=== PATIENT | female | born 1980 | race Caucasian/White ===

== ENCOUNTER 2017-08-09 16:07 | Emergency (ER) | payer OTHER, MEDICAID ==
[~2017-08-09] VITALS: Ht 152.4 cm; Wt 50.8 kg
[~2017-08-09 16:07] MED LIST: AMOXICILLIN 50500 MG PO; ANTIPYRINE-BENZ14 ML OT; AUGMENTIN 875875 M1 PO; BACTRIM DS TAB1 EACH PO; DIFLUCAN150 MG PO; DOXYCYCLINE 10100 MG PO; FLAGYL500 MG PO; FLEXERIL PO; HYDROCODONE-AP1 EAC6 PO; IBUPROFEN 800800 M1 PO; NAPROSYN500 MG PO; NOHOMEMEDICATIONS; NORCO 5-325 TA1 EACH PO; PROPRANOLOL 1010 MG PO; SPRINTEC1 EACH PO; ULTRAM 50MG TAB50 MG PO; VICODIN 5-5001 EACH PO; XANAX 0.25 MG0.25 MG PO; ZOFRAN ODT4 MG PO; ZOFRAN4 MG PO
[2017-08-09 16:22] VITALS: BP 121/79
[2017-08-09] MEDS ORDERED: PENICILLIN V P500 MG PO (16:28)
[2017-08-09] MEDS ORDERED: NORCO 5-325 TA1 EACH PO (16:28)
== END 2017-08-09 16:33 | disposition home or self-care (01) ==
LOC: M.ERS 16:07
DX: K02.9 Dental caries, unspecified (principal); G89.29 Other chronic pain; Z98.890 Other specified postprocedural states

== ENCOUNTER 2017-08-20 22:14 | Emergency (ER) | payer OTHER, MEDICAID ==
[~2017-08-20] VITALS: Ht 152.4 cm; Wt 49.9 kg
[~2017-08-20 22:14] MED LIST changes: +PENICILLIN V P500 MG PO
[2017-08-20 23:09] LABS: INFLUENZA A ANTIGEN None Detected (None Detect); INFLUENZA B ANTIGEN None Detected (None Detect)
[2017-08-20] MEDS ORDERED: AUGMENTIN 875-1 EACH PO (23:12)
[2017-08-20] MEDS ORDERED: NORCO 5-325 TA1 EACH PO (23:12)
[2017-08-20] MEDS ORDERED: ZOFRAN ODT4 MG PO (23:12)
[2017-08-20 23:30] VITALS: BP 109/63
== END 2017-08-20 23:30 | disposition home or self-care (01) ==
LOC: M.ERS 22:14
PROVIDERS: Emergency Medicine Emergency Medical Services
DX: K08.89 Other specified disorders of teeth and supporting structures (principal); G89.29 Other chronic pain; Z98.890 Other specified postprocedural states

== ENCOUNTER 2017-10-09 18:08 | Emergency (ER) | payer OTHER, MEDICAID ==
[~2017-10-09] VITALS: Ht 152.4 cm; Wt 47.2 kg
[~2017-10-09 18:08] MED LIST changes: +AUGMENTIN 875-1 EACH PO
[2017-10-09] MEDS ORDERED: ONE DAILY WOME1 EAC3 PO (18:21)
[2017-10-09] MEDS ORDERED: TRAMADOL 50 MG50 MG PO (18:37)
[2017-10-09] MEDS ORDERED: KEFLEX500 M1 PO (18:37)
[2017-10-09] MEDS ORDERED: SSD CREAM 1% 5050 GM TOP (18:39)
[2017-10-09 19:01] VITALS: BP 117/75
== END 2017-10-09 19:04 | disposition home or self-care (01) ==
LOC: M.ERS 18:08
DX: T20.50XA Corrosion of first degree of head, face, and neck, unspecified site, initial encounter (principal); T22.50XA Corrosion of first degree of shoulder and upper limb, except wrist and hand unspecified site, initial encounter; T32.0 Corrosions involving less than 10% of body surface; G89.29 Other chronic pain; M54.2 Cervicalgia; F10.20 Alcohol dependence, uncomplicated; Y93.89 Activity, other specified; Y92.89 Other specified places as the place of occurrence of the external cause; Y99.8 Other external cause status

== ENCOUNTER 2018-01-12 13:14 | Emergency (ER) | payer OTHER, MEDICAID ==
[~2018-01-12] VITALS: Ht 152.4 cm; Wt 45.8 kg
[~2018-01-12 13:14] MED LIST changes: +KEFLEX500 M1 PO; +ONE DAILY WOME1 EAC3 PO; +SSD CREAM 1% 5050 GM TOP; +TRAMADOL 50 MG50 MG PO
[2018-01-12 13:19] VITALS: BP 119/80
[2018-01-12] MEDS ORDERED: ACETAMINOPHEN-1 EAC1 PO (13:57)
[2018-01-12] MEDS ORDERED: MEDROLDOSEPACK PO (13:57)
[2018-01-12] MEDS ORDERED: CLARITIN10 MG PO (13:57)
== END 2018-01-12 14:04 | disposition home or self-care (01) ==
LOC: M.ERS 13:14
DX: J06.9 Acute upper respiratory infection, unspecified (principal); G89.29 Other chronic pain; M54.2 Cervicalgia

== ENCOUNTER 2018-05-21 16:57 | Emergency (ER) | payer OTHER, MEDICAID ==
[~2018-05-21] VITALS: Ht 152.4 cm; Wt 47.2 kg
[~2018-05-21 16:57] MED LIST changes: +ACETAMINOPHEN-1 EAC1 PO; +CLARITIN10 MG PO; +MEDROLDOSEPACK PO
[2018-05-21 17:27] LABS: URINE BILIRUBIN NEGATIVE (Negative); URINE BLOOD NEGATIVE (Negative); URINE CLARITY CLEAR; URINE COLOR YELLOW; URINE GLUCOSE-RANDOM NEGATIVE (Negative); URINE KETONES 1+ (Negative); URINE LEUKOCYTES-REFLEX NEGATIVE (Negative); URINE NITRITE-REFLEX NEGATIVE (Negative); URINE PROTEIN NEGATIVE (Negative); URINE SPECIFIC GRAVITY <= 1.005 (1.005-1.030); URINE UROBILINOGEN 0.2 E.U./dl (0.2-1.0)
[2018-05-21] MEDS ORDERED: ZOFRAN4 MG PO (18:33)
[2018-05-21 18:41] VITALS: BP 128/81
== END 2018-05-21 18:42 | disposition home or self-care (01) ==
LOC: M.ERS 16:57
PROVIDERS: Nurse Practitioner Family
DX: B34.9 Viral infection, unspecified (principal); M54.9 Dorsalgia, unspecified; G89.29 Other chronic pain; Z98.890 Other specified postprocedural states

== ENCOUNTER 2018-08-09 12:00 | Emergency (ER) | payer OTHER, MEDICAID ==
[~2018-08-09] VITALS: Ht 152.4 cm; Wt 47.2 kg
[2018-08-09] MEDS ORDERED: IBUPROFEN 800800 M1 PO (12:15)
[2018-08-09 12:37] LABS: URINE BILIRUBIN NEGATIVE (Negative); URINE BLOOD NEGATIVE (Negative); URINE CLARITY CLEAR; URINE COLOR YELLOW; URINE GLUCOSE-RANDOM NEGATIVE (Negative); URINE KETONES NEGATIVE (Negative); URINE LEUKOCYTES-REFLEX NEGATIVE (Negative); URINE NITRITE-REFLEX NEGATIVE (Negative); URINE PROTEIN NEGATIVE (Negative); URINE SPECIFIC GRAVITY <= 1.005 (1.005-1.030); URINE UROBILINOGEN 0.2 E.U./dl (0.2-1.0)
[2018-08-09 12:39] LABS: ABSOLUTE BASOPHILS 0.1 thou/uL (0.0-0.2); ABSOLUTE EOSINOPHILS 0.1 thou/uL (0.0-0.7); ABSOLUTE LYMPHOCYTES 2.2 thou/uL (0.8-5.3); ABSOLUTE MONOCYTES 0.9 thou/uL (0.0-1.2); BASOPHILS 0.5 %; HEMATOCRIT 42.8 % (37.0-47.0); HEMOGLOBIN 14.6 gm/dL (12.0-15.0); LYMPHOCYTES 23.6 %; MCH 31.6 pg (26.0-34.0); MCHC 34.1 g/dL (28.0-37.0); MCV 92.7 fL (80.0-100.0); MONOCYTES 9.5 %; MPV 7.1 fl. (7.2-11.1); NUCLEATED RBCS 0 /100WBC; PLATELET COUNT* 378 thou/uL (150-400); POLYS 65.4 %; RBC 4.62 mil/uL (4.20-5.00); WBC 9.2 thou/uL (4.0-11.0)
[2018-08-09 13:03] LABS: CALCIUM 9.2 mg/dL (8.5-10.1); CREATININE 0.7 mg/dL (0.6-1.3); POTASSIUM 3.9 mmol/L (3.5-5.1)
[2018-08-09 13:07] LABS: TOTAL BILIRUBIN 0.5 mg/dL (<0.1-1.0); TOTAL PROTEIN 7.4 g/dL (6.4-8.2)
[2018-08-09] MEDS ORDERED: HYDROCODONE-AP1 EAC6 PO (14:06)
[2018-08-09] MEDS ORDERED: ZOFRAN ODT4 MG PO (14:07)
[2018-08-09 14:29] VITALS: BP 114/72
== END 2018-08-09 14:30 | disposition home or self-care (01) ==
LOC: M.ERS 12:00
PROVIDERS: Emergency Medicine Emergency Medical Services
DX: M54.5 Low back pain (principal); G89.29 Other chronic pain; M54.2 Cervicalgia; N80.9 Endometriosis, unspecified; Z98.890 Other specified postprocedural states

== ENCOUNTER 2018-08-29 10:50 | Emergency (ER) | payer OTHER, MEDICAID ==
[~2018-08-29] VITALS: Ht 152.4 cm; Wt 48.5 kg
[2018-08-29 11:50] LABS: ABSOLUTE EOSINOPHILS 0.1 thou/uL (0.0-0.7); ABSOLUTE LYMPHOCYTES 1.9 thou/uL (0.8-5.3); ABSOLUTE MONOCYTES 0.8 thou/uL (0.0-1.2); ABSOLUTE NEUTROPHILS 4.2 thou/uL (1.6-8.1); BASOPHILS 0.7 %; EOSINOPHILS 1.5 %; HEMATOCRIT 40.6 % (37.0-47.0); HEMOGLOBIN 13.7 gm/dL (12.0-15.0); LYMPHOCYTES 27.3 %; MCHC 33.7 g/dL (28.0-37.0); MONOCYTES 10.8 %; MPV 7.3 fl. (7.2-11.1); NUCLEATED RBCS 0 /100WBC; PLATELET COUNT* 338 thou/uL (150-400); POLYS 59.7 %; RBC 4.41 mil/uL (4.20-5.00); RDW-CV 12.5 % (10.5-14.5); WBC 7.1 thou/uL (4.0-11.0)
[2018-08-29 12:14] LABS: CALCIUM 9.2 mg/dL (8.5-10.1); CREATININE 0.8 mg/dL (0.6-1.3); POTASSIUM 3.8 mmol/L (3.5-5.1)
[2018-08-29 12:19] LABS: TOTAL BILIRUBIN 0.5 mg/dL (<0.1-1.0); TOTAL PROTEIN 7.2 g/dL (6.4-8.2)
[2018-08-29 12:27] LABS: APTT 27.2 Seconds (25.0-31.3); PROTIME 10.5 Seconds (9.20-11.50)
[2018-08-29 13:45] LABS: URINE BILIRUBIN NEGATIVE (Negative); URINE BLOOD 3+ (Negative); URINE CLARITY CLEAR; URINE COLOR YELLOW; URINE GLUCOSE-RANDOM NEGATIVE (Negative); URINE KETONES 1+ (Negative); URINE LEUKOCYTES-REFLEX NEGATIVE (Negative); URINE NITRITE-REFLEX NEGATIVE (Negative); URINE PROTEIN NEGATIVE (Negative); URINE UROBILINOGEN 0.2 E.U./dl (0.2-1.0)
[2018-08-29] MEDS ORDERED: NAPROSYN500 MG PO (13:45)
[2018-08-29] MEDS ORDERED: ACETAMINOPHEN-1 EAC1 PO (13:45)
[2018-08-29] MEDS ORDERED: HYDROXYZINE HCL25 M1 PO (13:45)
[2018-08-29 13:53] LABS: BACTERIA-REFLEX None Seen /HPF (None Seen); CASTS None Seen /LPF (None Seen); SQUAMOUS 0-3 Few /LPF (0-3); URINE RBC 0-2 Rare /HPF (0-2); URINE WBC-REFLEX 0-5 Rare /HPF (0-5)
[2018-08-29 13:54] LABS: CRYSTALS None Seen /LPF (None Seen)
[2018-08-29 14:13] VITALS: BP 117/87
== END 2018-08-29 14:14 | disposition home or self-care (01) ==
LOC: M.ERS 10:50
PROVIDERS: Physician Assistant
DX: N93.8 Other specified abnormal uterine and vaginal bleeding (principal); F41.9 Anxiety disorder, unspecified; M54.2 Cervicalgia; G89.29 Other chronic pain; Z98.890 Other specified postprocedural states

== ENCOUNTER 2019-04-06 12:50 | Emergency (ER) | payer OTHER ==
[~2019-04-06] VITALS: Ht 152.4 cm; Wt 52.6 kg
[~2019-04-06 12:50] MED LIST changes: +HYDROXYZINE HCL25 M1 PO
[2019-04-06 13:26] LABS: ABSOLUTE BASOPHILS 0.1 thou/uL (0.0-0.2); ABSOLUTE EOSINOPHILS 0.1 thou/uL (0.0-0.7); ABSOLUTE LYMPHOCYTES 2.4 thou/uL (0.8-5.3); ABSOLUTE MONOCYTES 1.1 thou/uL (0.0-1.2); ABSOLUTE NEUTROPHILS 8.1 thou/uL (1.6-8.1); BASOPHILS 0.9 %; EOSINOPHILS 0.6 %; HEMATOCRIT 42.2 % (37.0-47.0); LYMPHOCYTES 20.3 %; MCH 30.2 pg (26.0-34.0); MCHC 33.2 g/dL (28.0-37.0); MCV 91.1 fL (80.0-100.0); MONOCYTES 9.5 %; MPV 7.3 fl. (7.2-11.1); NUCLEATED RBCS 0 /100WBC; PLATELET COUNT* 275 thou/uL (150-400); POLYS 68.7 %; RBC 4.64 mil/uL (4.20-5.00); RDW-CV 12.7 % (10.5-14.5); WBC 11.8 thou/uL (4.0-11.0)
[2019-04-06 13:35] LABS: CALCIUM 8.5 mg/dL (8.5-10.1); CREATININE 0.8 mg/dL (0.6-1.3)
[2019-04-06 13:39] LABS: ALBUMIN 3.3 g/dL (3.4-5.0); TOTAL BILIRUBIN 0.2 mg/dL (<0.1-1.0); TOTAL PROTEIN 6.2 g/dL (6.4-8.2)
[2019-04-06 14:15] LABS: URINE BILIRUBIN NEGATIVE (Negative); URINE BLOOD NEGATIVE (Negative); URINE CLARITY CLEAR; URINE COLOR YELLOW; URINE GLUCOSE-RANDOM NEGATIVE (Negative); URINE KETONES NEGATIVE (Negative); URINE LEUKOCYTES-REFLEX NEGATIVE (Negative); URINE NITRITE-REFLEX NEGATIVE (Negative); URINE PROTEIN NEGATIVE (Negative); URINE SPECIFIC GRAVITY 1.025 (1.005-1.030); URINE UROBILINOGEN 0.2 E.U./dl (0.2-1.0)
[2019-04-06] MEDS ORDERED: ONDANSETRON HCL4 M2 PO (15:04)
[2019-04-06 15:19] VITALS: BP 92/57
== END 2019-04-06 15:21 | disposition home or self-care (01) ==
LOC: M.ERS 12:50
PROVIDERS: Nurse Practitioner Family
DX: K52.9 Noninfective gastroenteritis and colitis, unspecified (principal); F41.9 Anxiety disorder, unspecified; M54.2 Cervicalgia; G89.29 Other chronic pain; Z98.890 Other specified postprocedural states

== ENCOUNTER 2019-05-30 12:51 | Emergency (ER) | payer OTHER ==
[~2019-05-30] VITALS: Ht 154.9 cm; Wt 59.0 kg
[~2019-05-30 12:51] MED LIST changes: +ONDANSETRON HCL4 M2 PO
[2019-05-30] MEDS ORDERED: PROBIOTIC1 EAC7 PO (13:14)
[2019-05-30 13:23] LABS: URINE BILIRUBIN NEGATIVE (Negative); URINE BLOOD NEGATIVE (Negative); URINE CLARITY CLEAR; URINE COLOR YELLOW; URINE GLUCOSE-RANDOM NEGATIVE (Negative); URINE KETONES NEGATIVE (Negative); URINE LEUKOCYTES-REFLEX 1+ (Negative); URINE PROTEIN NEGATIVE (Negative); URINE SPECIFIC GRAVITY <= 1.005 (1.005-1.030); URINE UROBILINOGEN 0.2 E.U./dl (0.2-1.0)
[2019-05-30 13:25] LABS: URINE NITRITE-REFLEX POSITIVE (Negative)
[2019-05-30 13:30] LABS: SQUAMOUS >10 Many /LPF (0-3)
[2019-05-30] MEDS ORDERED: PYRIDIUM100 M1 PO (13:30)
[2019-05-30] MEDS ORDERED: DIFLUCAN150 M1 PO (13:30)
[2019-05-30] MEDS ORDERED: MACROBID 100 M100 M2 PO (13:30)
[2019-05-30 13:31] LABS: URINE WBC-REFLEX 6-15 Few /HPF (0-5)
[2019-05-30 13:32] LABS: BACTERIA-REFLEX >30 Many /HPF (None Seen); CASTS None Seen /LPF (None Seen); CRYSTALS None Seen /LPF (None Seen); MUCUS None Seen strn/LPF (None Seen); URINE RBC None Seen /HPF (0-2)
[2019-05-30 13:39] VITALS: BP 101/59
== END 2019-05-30 13:40 | disposition home or self-care (01) ==
LOC: M.ERS 12:51
PROVIDERS: Nurse Practitioner Family
DX: N39.0 Urinary tract infection, site not specified (principal); B37.3 Candidiasis of vulva and vagina; F41.9 Anxiety disorder, unspecified; G89.29 Other chronic pain; N80.9 Endometriosis, unspecified; Z98.890 Other specified postprocedural states

== ENCOUNTER 2020-08-10 14:21 | Emergency (ER) | payer OTHER, MEDICAID ==
[~2020-08-10] VITALS: Ht 152.4 cm; Wt 54.4 kg
[~2020-08-10 14:21] MED LIST changes: +DIFLUCAN150 M1 PO; +MACROBID 100 M100 M2 PO; +PROBIOTIC1 EAC7 PO; +PYRIDIUM100 M1 PO
[2020-08-10] MEDS ORDERED: ASA81BEC PO (14:37)
[2020-08-10] MEDS ORDERED: VITAMIN D-40010 MCG PO (14:38)
[2020-08-10] MEDS ORDERED: VITAMIN C100 MG PO (14:38)
[2020-08-10] MEDS ORDERED: ZINC30 M1 PO (14:38)
[2020-08-10 16:30] VITALS: BP 105/58
--- NOTE | 2020-08-12 13:44 | EKG ---
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 : 1980 Requested By: Jennie Reyes Order Number: [id number] Kristen MD: Ethan Stoner Measurements Intervals Wilson Rate: 67 P: 59 ID: [id number] QRS: 40 QRSD: 93 T: 71 QT: 381 QTc: 403 Interpretive Statements Sinus rhythm RSR' in V1 or V2, right VCD or RVH Compared to ECG 10/20/2016 00:58:30 RSR' in V1 or V2 now present T-wave abnormality no longer present Electronically Signed On 08-12-2020 13:43:55 TECHNICAL BUSINESS ANALYST by Ethan Stoner [email or web address] <ELECTRONICALLY SIGNED> By: Ethan Stoner MD, FAC 08/12/20 1343 1431 1431 Ethan Stoner MD, [facility] /EPI
== END 2020-08-10 16:32 | disposition home or self-care (01) ==
LOC: M.ERS 14:21
DX: B34.9 Viral infection, unspecified (principal); Z20.828 Contact with and (suspected) exposure to other viral communicable diseases; G89.29 Other chronic pain; N80.9 Endometriosis, unspecified; Z98.890 Other specified postprocedural states

== ENCOUNTER 2020-10-10 15:10 | Emergency (ER) | payer OTHER, MEDICAID ==
[~2020-10-10] VITALS: Ht 165.1 cm; Wt 57.1 kg
[~2020-10-10 15:10] MED LIST changes: +ASA81BEC PO; +VITAMIN C100 MG PO; +VITAMIN D-40010 MCG PO; +ZINC30 M1 PO
[2020-10-10 15:45] LABS: URINE BILIRUBIN NEGATIVE (Negative); URINE BLOOD TRACE (Negative); URINE CLARITY CLEAR; URINE COLOR YELLOW; URINE GLUCOSE-RANDOM NEGATIVE (Negative); URINE KETONES NEGATIVE (Negative); URINE LEUKOCYTES NEGATIVE (Negative); URINE NITRITE NEGATIVE (Negative); URINE PROTEIN NEGATIVE (Negative); URINE UROBILINOGEN 0.2 E.U./dl (0.2-1.0)
[2020-10-10] MEDS ORDERED: PROTONIX40 MG PO (18:01)
[2020-10-10] MEDS ORDERED: ZOFRAN ODT4 MG PO (18:01)
[2020-10-10 18:07] VITALS: BP 121/78
== END 2020-10-10 18:08 | disposition home or self-care (01) ==
LOC: M.ERS 15:10
PROVIDERS: Emergency Medicine
DX: R11.0 Nausea (principal); R53.83 Other fatigue; R42 Dizziness and giddiness; R53.81 Other malaise; F41.9 Anxiety disorder, unspecified; Z98.890 Other specified postprocedural states

== ENCOUNTER 2021-01-26 16:04 | Emergency (ER) | payer OTHER, MEDICAID ==
[~2021-01-26] VITALS: Ht 152.4 cm; Wt 56.7 kg
[~2021-01-26 16:04] MED LIST changes: +PROTONIX40 MG PO
[2021-01-26 16:32] LABS: URINE BILIRUBIN NEGATIVE (Negative); URINE BLOOD 3+ (Negative); URINE CLARITY CLEAR; URINE COLOR YELLOW; URINE GLUCOSE-RANDOM NEGATIVE (Negative); URINE KETONES NEGATIVE (Negative); URINE LEUKOCYTES-REFLEX NEGATIVE (Negative); URINE NITRITE-REFLEX NEGATIVE (Negative); URINE PROTEIN NEGATIVE (Negative); URINE SPECIFIC GRAVITY >= 1.030 (1.005-1.030); URINE UROBILINOGEN 0.2 E.U./dl (0.2-1.0)
[2021-01-26 16:50] LABS: BACTERIA-REFLEX 1-9 Few /HPF (None Seen); URINE RBC 3-10 Few /HPF (0-2); URINE WBC-REFLEX 0-5 Rare /HPF (0-5)
[2021-01-26 16:51] LABS: CASTS None Seen /LPF (None Seen); CRYSTALS None Seen /LPF (None Seen)
[2021-01-26 16:53] LABS: SQUAMOUS 4-10 Moderate /LPF (0-3)
[2021-01-26] MEDS ORDERED: FLAGYL500 M1 PO (17:56)
[2021-01-26] MEDS ORDERED: NORCO5 PO ×2 (17:57→18:00)
[2021-01-26] MEDS ORDERED: NAPROSYN500 MG PO (17:57)
[2021-01-26] MEDS ORDERED: DIFLUCAN150 MG PO (18:01)
[2021-01-26 18:04] VITALS: BP 105/60
== END 2021-01-26 18:04 | disposition home or self-care (01) ==
LOC: M.ERS 16:04
PROVIDERS: Family Medicine
DX: N76.0 Acute vaginitis (principal); B96.89 Other specified bacterial agents as the cause of diseases classified elsewhere; Z98.890 Other specified postprocedural states

== ENCOUNTER 2021-02-14 13:53 | Emergency (ER) | payer OTHER, MEDICAID ==
[~2021-02-14] VITALS: Ht 152.4 cm; Wt 54.4 kg
[~2021-02-14 13:53] MED LIST changes: +FLAGYL500 M1 PO; +NORCO5 PO
[2021-02-14] MEDS ORDERED: BENTYL 10 MG CA10 M1 PO (14:09)
[2021-02-14] MEDS ORDERED: ZOFRAN ODT4 MG DISSOLVE (14:09)
[2021-02-14 14:21] VITALS: BP 125/64
== END 2021-02-14 14:31 | disposition home or self-care (01) ==
LOC: M.ERS 13:53
DX: R10.84 Generalized abdominal pain (principal); N80.9 Endometriosis, unspecified; Z98.890 Other specified postprocedural states